=== PATIENT | male | born 1935 | race Caucasian/White ===

== ENCOUNTER 2018-01-06 11:28 | Observation (INO) ==
--- NOTE | 2018-01-06 12:10 | Emergency Department Note ---
Disposition Clinical Impression: Altered mental status, TIA (transient ischemic attack) Disposition: Still a Patient Condition: Good Altered Mental Status HPI - General Chief Complaint: ED Altered Mental Status Stated Complaint: AMS, Difficulty thinking Time Seen by Provider: 01/06/18 11:43 Source: patient Limitations: no limitations - History of Present Illness HPI Narrative: 82 YO M here for AMS. History was taken mostly from his and son. His family states that this morning patient reports that he woke up confused and kept repeating the same questions after hearing the answers. Family and patient deny falling. Patient denies urinary symptoms, cough, SOB, CP, abdominal pain, bowel movement changes, fever, night sweats. Family reports patient has been healthy with no relevant medical history. He is very active, playing tennis last Wednesday. Has essential tremor at baseline according to family. No history of falls or ambulation. - Related Data Home Medications Medication Instructions Recorded Confirmed RX: No Known Home Drugs 01/06/18 01/06/18 Allergies Allergy/AdvReac Type Severity Reaction Status Date / Time No Known Allergies Allergy Verified 01/06/18 11:49 Constitutional: Denies: fever, chills, weakness, weight change, night sweats Cardiovascular: Denies: chest pain, palpitations Respiratory: Denies: cough, dyspnea, wheezes, sputum production Gastrointestinal: Denies: abdominal pain, nausea, vomiting, diarrhea Genitourinary: Denies: urgency, dysuria Neurological: Denies: headache, weakness, numbness, paresthesias, confusion, abnormal gait Past Medical History - Past Medical History Medical history: Reports: no medical history Psychiatric history: Reports: no psych history - Social History Smoking Status: Never smoker Smokeless Tobacco Status: No Alcohol use: Reports: none Drug use: Reports: none Physical Exam - General Limitations: no limitations General appearance: alert, in no apparent distress - Head Head exam: atraumatic, normocephalic - Eye Eye exam: Present: normal appearance, PERRL, EOMI. Absent: scleral icterus, conjunctival injection, nystagmus, miosis - Chest Chest inspection: Present: symmetric chest wall rise - Respiratory Respiratory exam: Present: normal lung sounds bilaterally - Cardiovascular Cardiovascular exam: Present: regular rate, normal rhythm, normal heart sounds - Abdominal Exam Abdominal exam: Present: soft, Non-Tender, normal bowel sounds. Absent: distention, guarding, rebound - Neurological Exam Neurological exam: Present: alert, other (did not remember what he ate last night). Absent: oriented X3 (Short term memory not intact - can't remember 3 objects, not oriented to time) - Expanded Neurological Exam Patient oriented to: Present: person, place Cerebellar function: finger to nose: Abnormal Left, Abnormal Right (Patient had tremor) Motor strength - LUE: 5/5 Motor strength - RUE: 5/5 Motor strength - LLE: 5/5 Motor strength - RLE: 5/5 - Psychiatric Psychiatric exam: Present: normal affect, normal mood Course Course Narrative: 82 YO M here for AMS with no signifcant history. Patient is NIH stroke scale 1. Other than AMS patient doesn't have any physical findings. Considering stroke vs infectious. Ordered head CT, CXR, bloodwork - Reevaluation(s) Reevaluation #1: CT head negative for acute pathology. Spoke with hospitalist and okay to admit patient for workup for TIA. Vital Signs Temperature 97.9 F 01/06/18 11:32 Pulse Rate 72 01/06/18 11:32 Respiratory Rate 15 01/06/18 11:32 Blood Pressure 144/78 01/06/18 11:32 O2 Sat by Pulse Oximetry 97 01/06/18 11:32 Temperature 98.2 F 01/06/18 16:45 Pulse Rate 53 01/06/18 16:45 Respiratory Rate 16 01/06/18 16:45 Blood Pressure 122/72 01/06/18 16:45 O2 Sat by Pulse Oximetry 98 01/06/18 16:45 Oxygen Delivery Oxygen Delivery Room Air Altered Mental Status - Lab Data Result diagrams: 01/06/18 12:08 01/06/18 12:08 Lab Results 01/06/18 01/06/18 01/06/18 Range/Units 12:08 12:08 12:08 WBC 5.3 (4.3-11.1) K/mcL RBC 4.46 (4.19-5.50) M/mcL Hgb 14.0 (12.9-16.9) g/dL Hct 42.0 (37.5-50.1) % MCV 94.2 (83.0-100.0) fL MCH 31.4 (28.0-33.3) pg MCHC 33.3 (31.6-35.5) g/dL RDW 13.1 (11.5-14.5) % Plt Count 223 (140-400) K/mcL MPV 9.7 (9.4-12.4) fL Immature Gran % 0.2 (0-4) % Seg Neutrophils % 66.7 % Lymphocytes % 21.5 % Monocytes % 8.9 % Eosinophils % 2.1 % Basophils % 0.6 % Neutrophils # 3.5 (1.6-8.9) K/mcL Lymphocytes # 1.1 (0.6-4.6) K/mcL Monocytes # 0.5 (0.0-1.3) K/mcL Eosinophils # 0.1 (0.0-0.6) K/mcL Basophils # 0.0 (0.0-0.2) K/mcL Sodium 139 (136-145) mEq/L Potassium 4.5 (3.5-5.1) mEq/L Chloride 108 H (98-107) mEq/L Carbon Dioxide 26 (23-29) mEq/L BUN 26 H (8-23) mg/dL Creatinine 1.29 (0.70-1.30) mg/dL Est GFR ( Amer) > 60 (> 60) Est GFR (Non-Af Amer) 53 L (> 60) BUN/Creatinine Ratio 20 (6-26) Glucose 95 (70-105) mg/dL Calculated Osmolality 293 (280-300) Calcium 9.7 (8.6-10.3) mg/dL Total Bilirubin 0.6 (0.3-1.0) mg/dL Direct Bilirubin 0.1 (0.0-0.2) mg/dL Indirect Bilirubin 0.5 (0.0-1.2) mg/dL AST 24 (13-39) Units/L ALT 21 (7-52) Units/L Alkaline Phosphatase 49 (34-104) Units/L Ammonia 20 (16-53) mcmol/L Troponin I < 0.03 (< 0.04) ng/mL Serum Total Protein 6.8 (6.4-8.9) g/dL Albumin 4.1 (3.5-5.7) g/dL Globulin 2.7 (2.4-3.5) g/dL Albumin/Globulin Ratio 1.5 (1.1-2.2) TSH 2.760 (0.340-5.600) mcIU/mL Urine Color (Yellow) Urine Clarity (Clear) Urine pH (5.0-8.0) pH Units Ur Specific [place] (1.010-1.025) Urine Protein (Neg-Trace) mg/dL Urine Glucose (UA) (Normal) mg/dL Urine Ketones (Negative) mg/dL Urine Blood (Negative) Urine Nitrite (Negative) Urine Bilirubin (Negative) Urine Urobilinogen (Normal) mg/dL Ur Leukocyte Esterase (Negative) Ur Culture Indicated? (NO) Urine Opiates Screen (Dgxumt=462) ng/mL Ur Barbiturates Screen (Fsukrx=682) ng/mL Ur Phencyclidine Scrn (Cutoff=25) ng/mL Ur Amphetamines Screen (Pukfnt=6692) ng/mL U Benzodiazepines Scrn (Yxyisj=297) ng/mL Urine Cocaine Screen (Cutoff= 300) ng/mL U Marijuana (THC) Screen (Cutoff = 50) ng/mL Ur Drug Screen Interp Ethyl Alcohol < 10 (Less than 10) mg/dL 01/06/18 01/06/18 Range/Units 13:06 13:06 WBC (4.3-11.1) K/mcL RBC (4.19-5.50) M/mcL Hgb (12.9-16.9) g/dL Hct (37.5-50.1) % MCV (83.0-100.0) fL MCH (28.0-33.3) pg MCHC (31.6-35.5) g/dL RDW (11.5-14.5) % Plt Count (140-400) K/mcL MPV (9.4-12.4) fL Immature Gran % (0-4) % Seg Neutrophils % % Lymphocytes % % Monocytes % % Eosinophils % % Basophils % % Neutrophils # (1.6-8.9) K/mcL Lymphocytes # (0.6-4.6) K/mcL Monocytes # (0.0-1.3) K/mcL Eosinophils # (0.0-0.6) K/mcL Basophils # (0.0-0.2) K/mcL Sodium (136-145) mEq/L Potassium (3.5-5.1) mEq/L Chloride (98-107) mEq/L Carbon Dioxide (23-29) mEq/L BUN (8-23) mg/dL Creatinine (0.70-1.30) mg/dL Est GFR ( Amer) (> 60) Est GFR (Non-Af Amer) (> 60) BUN/Creatinine Ratio (6-26) Glucose (70-105) mg/dL Calculated Osmolality (280-300) Calcium (8.6-10.3) mg/dL Total Bilirubin (0.3-1.0) mg/dL Direct Bilirubin (0.0-0.2) mg/dL Indirect Bilirubin (0.0-1.2) mg/dL AST (13-39) Units/L ALT (7-52) Units/L Alkaline Phosphatase (34-104) Units/L Ammonia (16-53) mcmol/L Troponin I (< 0.04) ng/mL Serum Total Protein (6.4-8.9) g/dL Albumin (3.5-5.7) g/dL Globulin (2.4-3.5) g/dL Albumin/Globulin Ratio (1.1-2.2) TSH (0.340-5.600) mcIU/mL Urine Color Yellow (Yellow) Urine Clarity Clear (Clear) Urine pH 5.0 (5.0-8.0) pH Units Ur Specific [place] 1.021 (1.010-1.025) Urine Protein Negative (Neg-Trace) mg/dL Urine Glucose (UA) Normal (Normal) mg/dL Urine Ketones Negative (Negative) mg/dL Urine Blood Negative (Negative) Urine Nitrite Negative (Negative) Urine Bilirubin Negative (Negative) Urine Urobilinogen Normal (Normal) mg/dL Ur Leukocyte Esterase Negative (Negative) Ur Culture Indicated? NO (NO) Urine Opiates Screen Negative (Weropy=760) ng/mL Ur Barbiturates Screen Negative (Zkphni=309) ng/mL Ur Phencyclidine Scrn Negative (Cutoff=25) ng/mL Ur Amphetamines Screen Negative (Pbpkhd=0437) ng/mL U Benzodiazepines Scrn Negative (Cleufy=981) ng/mL Urine Cocaine Screen Negative (Cutoff= 300) ng/mL U Marijuana (THC) Screen Negative (Cutoff = 50) ng/mL Ur Drug Screen Interp See Below Ethyl Alcohol (Less than 10) mg/dL TPA Checklist - LKW: 3-4.5 hrs Add. Warnings/Precautions Patient/family understanding: The patient/family members have been counseled and understood the risk, benefit , and alternatives of treatment. Nausea/Vomiting/Diarrhea - Lab Data Result diagrams: 01/06/18 12:08 01/06/18 12:08 Lab Results 01/06/18 01/06/18 01/06/18 Range/Units 12:08 12:08 12:08 WBC 5.3 (4.3-11.1) K/mcL RBC 4.46 (4.19-5.50) M/mcL Hgb 14.0 (12.9-16.9) g/dL Hct 42.0 (37.5-50.1) % MCV 94.2 (83.0-100.0) fL MCH 31.4 (28.0-33.3) pg MCHC 33.3 (31.6-35.5) g/dL RDW 13.1 (11.5-14.5) % Plt Count 223 (140-400) K/mcL MPV 9.7 (9.4-12.4) fL Immature Gran % 0.2 (0-4) % Seg Neutrophils % 66.7 % Lymphocytes % 21.5 % Monocytes % 8.9 % Eosinophils % 2.1 % Basophils % 0.6 % Neutrophils # 3.5 (1.6-8.9) K/mcL Lymphocytes # 1.1 (0.6-4.6) K/mcL Monocytes # 0.5 (0.0-1.3) K/mcL Eosinophils # 0.1 (0.0-0.6) K/mcL Basophils # 0.0 (0.0-0.2) K/mcL Sodium 139 (136-145) mEq/L Potassium 4.5 (3.5-5.1) mEq/L Chloride 108 H (98-107) mEq/L Carbon Dioxide 26 (23-29) mEq/L BUN 26 H (8-23) mg/dL Creatinine 1.29 (0.70-1.30) mg/dL Est GFR ( Amer) > 60 (> 60) Est GFR (Non-Af Amer) 53 L (> 60) BUN/Creatinine Ratio 20 (6-26) Glucose 95 (70-105) mg/dL Calculated Osmolality 293 (280-300) Calcium 9.7 (8.6-10.3) mg/dL Total Bilirubin 0.6 (0.3-1.0) mg/dL Direct Bilirubin 0.1 (0.0-0.2) mg/dL Indirect Bilirubin 0.5 (0.0-1.2) mg/dL AST 24 (13-39) Units/L ALT 21 (7-52) Units/L Alkaline Phosphatase 49 (34-104) Units/L Ammonia 20 (16-53) mcmol/L Troponin I < 0.03 (< 0.04) ng/mL Serum Total Protein 6.8 (6.4-8.9) g/dL Albumin 4.1 (3.5-5.7) g/dL Globulin 2.7 (2.4-3.5) g/dL Albumin/Globulin Ratio 1.5 (1.1-2.2) TSH 2.760 (0.340-5.600) mcIU/mL Urine Color (Yellow) Urine Clarity (Clear) Urine pH (5.0-8.0) pH Units Ur Specific [place] (1.010-1.025) Urine Protein (Neg-Trace) mg/dL Urine Glucose (UA) (Normal) mg/dL Urine Ketones (Negative) mg/dL Urine Blood (Negative) Urine Nitrite (Negative) Urine Bilirubin (Negative) Urine Urobilinogen (Normal) mg/dL Ur Leukocyte Esterase (Negative) Ur Culture Indicated? (NO) Urine Opiates Screen (Wbnwjk=045) ng/mL Ur Barbiturates Screen (Tuuvlq=292) ng/mL Ur Phencyclidine Scrn (Cutoff=25) ng/mL Ur Amphetamines Screen (Qpcaya=1327) ng/mL U Benzodiazepines Scrn (Fltpye=411) ng/mL Urine Cocaine Screen (Cutoff= 300) ng/mL U Marijuana (THC) Screen (Cutoff = 50) ng/mL Ur Drug Screen Interp Ethyl Alcohol < 10 (Less than 10) mg/dL 01/06/18 01/06/18 Range/Units 13:06 13:06 WBC (4.3-11.1) K/mcL RBC (4.19-5.50) M/mcL Hgb (12.9-16.9) g/dL Hct (37.5-50.1) % MCV (83.0-100.0) fL MCH (28.0-33.3) pg MCHC (31.6-35.5) g/dL RDW (11.5-14.5) % Plt Count (140-400) K/mcL MPV (9.4-12.4) fL Immature Gran % (0-4) % Seg Neutrophils % % Lymphocytes % % Monocytes % % Eosinophils % % Basophils % % Neutrophils # (1.6-8.9) K/mcL Lymphocytes # (0.6-4.6) K/mcL Monocytes # (0.0-1.3) K/mcL Eosinophils # (0.0-0.6) K/mcL Basophils # (0.0-0.2) K/mcL Sodium (136-145) mEq/L Potassium (3.5-5.1) mEq/L Chloride (98-107) mEq/L Carbon Dioxide (23-29) mEq/L BUN (8-23) mg/dL Creatinine (0.70-1.30) mg/dL Est GFR ( Amer) (> 60) Est GFR (Non-Af Amer) (> 60) BUN/Creatinine Ratio (6-26) Glucose (70-105) mg/dL Calculated Osmolality (280-300) Calcium (8.6-10.3) mg/dL Total Bilirubin (0.3-1.0) mg/dL Direct Bilirubin (0.0-0.2) mg/dL Indirect Bilirubin (0.0-1.2) mg/dL AST (13-39) Units/L ALT (7-52) Units/L Alkaline Phosphatase (34-104) Units/L Ammonia (16-53) mcmol/L Troponin I (< 0.04) ng/mL Serum Total Protein (6.4-8.9) g/dL Albumin (3.5-5.7) g/dL Globulin (2.4-3.5) g/dL Albumin/Globulin Ratio (1.1-2.2) TSH (0.340-5.600) mcIU/mL Urine Color Yellow (Yellow) Urine Clarity Clear (Clear) Urine pH 5.0 (5.0-8.0) pH Units Ur Specific [place] 1.021 (1.010-1.025) Urine Protein Negative (Neg-Trace) mg/dL Urine Glucose (UA) Normal (Normal) mg/dL Urine Ketones Negative (Negative) mg/dL Urine Blood Negative (Negative) Urine Nitrite Negative (Negative) Urine Bilirubin Negative (Negative) Urine Urobilinogen Normal (Normal) mg/dL Ur Leukocyte Esterase Negative (Negative) Ur Culture Indicated? NO (NO) Urine Opiates Screen Negative (Cmozyd=757) ng/mL Ur Barbiturates Screen Negative (Kxkjcs=246) ng/mL Ur Phencyclidine Scrn Negative (Cutoff=25) ng/mL Ur Amphetamines Screen Negative (Hrmblr=2331) ng/mL U Benzodiazepines Scrn Negative (Nflscj=301) ng/mL Urine Cocaine Screen Negative (Cutoff= 300) ng/mL U Marijuana (THC) Screen Negative (Cutoff = 50) ng/mL Ur Drug Screen Interp See Below Ethyl Alcohol (Less than 10) mg/dL - EKG Data EKG attestation: Yes I reviewed and interpreted this EKG. EKG shows normal: sinus rhythm Rate: normal Rhythm: NSR [place]/QRS: left axis deviation Interpretation: no acute changes, unchanged when compared to prior tracing (date ) NIH Stroke Scale - Level of Consciousness LOC: Alert - LOC Questions LOC Questions: Answers one correctly - LOC Commands LOC Commands: Performs both correctly - Best Gaze Best Gaze: Normal - Visual Visual: No visual loss - Facial Palsy Facial Palsy: Normal - Motor Arms Motor Arm-Left: No drift for 10 seconds Motor Arm-Right: No drift for 10 seconds - Motor Legs Motor Leg-Left: No drift for 5 seconds Motor Leg-Right: No drift for 5 seconds - Limb Ataxia Limb Ataxia: Absent of affected limb too weak to perform exam - Sensory Sensory: Normal - Best Language Best Language: No aphasia - Dysarthria Dysarthria: Normal - Extinction and Inattention Extinction and Inattention: Normal - NIHSS Total Score NIHSS Total Score: 1
--- NOTE | 2018-01-06 12:13 | Emergency Department Note ---
Disposition Clinical Impression: TIA (transient ischemic attack) Altered mental status Qualifiers: Altered mental status type: unspecified Qualified Code(s): R41.82 - Altered mental status, unspecified Disposition: Still a Patient Condition: Good General Adult HPI - General Chief complaint: ED Altered Mental Status Stated complaint: AMS, Difficulty thinking Time Seen by Provider: 01/06/18 11:43 Source: patient Limitations: no limitations - History of Present Illness Pain Scale: 0 - Related Data Home Medications Medication Instructions Recorded Confirmed No Known Home Drugs 01/06/18 01/06/18 Allergies Allergy/AdvReac Type Severity Reaction Status Date / Time No Known Allergies Allergy Verified 01/06/18 11:49 Past Medical History - Past Medical History Medical history: Reports: no medical history Psychiatric history: Reports: no psych history - Social History Smoking Status: Never smoker Smokeless Tobacco Status: No Alcohol use: Reports: none Drug use: Reports: none Physical Exam - General Limitations: no limitations General appearance: alert, in no apparent distress Course Vital Signs Temperature 97.9 F 01/06/18 11:32 Pulse Rate 72 01/06/18 11:32 Respiratory Rate 15 01/06/18 11:32 Blood Pressure 144/78 01/06/18 11:32 O2 Sat by Pulse Oximetry 97 01/06/18 11:32 Temperature 98.2 F 01/06/18 16:45 Pulse Rate 53 01/06/18 16:45 Respiratory Rate 16 01/06/18 16:45 Blood Pressure 122/72 01/06/18 16:45 O2 Sat by Pulse Oximetry 98 01/06/18 16:45 Oxygen Delivery Oxygen Delivery Room Air Medical Decision Making - Lab Data Result diagrams: 01/06/18 12:08 01/06/18 12:08 Lab Results 01/06/18 01/06/18 01/06/18 Range/Units 12:08 12:08 12:08 WBC 5.3 (4.3-11.1) K/mcL RBC 4.46 (4.19-5.50) M/mcL Hgb 14.0 (12.9-16.9) g/dL Hct 42.0 (37.5-50.1) % MCV 94.2 (83.0-100.0) fL MCH 31.4 (28.0-33.3) pg MCHC 33.3 (31.6-35.5) g/dL RDW 13.1 (11.5-14.5) % Plt Count 223 (140-400) K/mcL MPV 9.7 (9.4-12.4) fL Immature Gran % 0.2 (0-4) % Seg Neutrophils % 66.7 % Lymphocytes % 21.5 % Monocytes % 8.9 % Eosinophils % 2.1 % Basophils % 0.6 % Neutrophils # 3.5 (1.6-8.9) K/mcL Lymphocytes # 1.1 (0.6-4.6) K/mcL Monocytes # 0.5 (0.0-1.3) K/mcL Eosinophils # 0.1 (0.0-0.6) K/mcL Basophils # 0.0 (0.0-0.2) K/mcL Sodium 139 (136-145) mEq/L Potassium 4.5 (3.5-5.1) mEq/L Chloride 108 H (98-107) mEq/L Carbon Dioxide 26 (23-29) mEq/L BUN 26 H (8-23) mg/dL Creatinine 1.29 (0.70-1.30) mg/dL Est GFR ( Amer) > 60 (> 60) Est GFR (Non-Af Amer) 53 L (> 60) BUN/Creatinine Ratio 20 (6-26) Glucose 95 (70-105) mg/dL Calculated Osmolality 293 (280-300) Calcium 9.7 (8.6-10.3) mg/dL Total Bilirubin 0.6 (0.3-1.0) mg/dL Direct Bilirubin 0.1 (0.0-0.2) mg/dL Indirect Bilirubin 0.5 (0.0-1.2) mg/dL AST 24 (13-39) Units/L ALT 21 (7-52) Units/L Alkaline Phosphatase 49 (34-104) Units/L Ammonia 20 (16-53) mcmol/L Troponin I < 0.03 (< 0.04) ng/mL Serum Total Protein 6.8 (6.4-8.9) g/dL Albumin 4.1 (3.5-5.7) g/dL Globulin 2.7 (2.4-3.5) g/dL Albumin/Globulin Ratio 1.5 (1.1-2.2) TSH 2.760 (0.340-5.600) mcIU/mL Urine Color (Yellow) Urine Clarity (Clear) Urine pH (5.0-8.0) pH Units Ur Specific [place] (1.010-1.025) Urine Protein (Neg-Trace) mg/dL Urine Glucose (UA) (Normal) mg/dL Urine Ketones (Negative) mg/dL Urine Blood (Negative) Urine Nitrite (Negative) Urine Bilirubin (Negative) Urine Urobilinogen (Normal) mg/dL Ur Leukocyte Esterase (Negative) Ur Culture Indicated? (NO) Urine Opiates Screen (Oienqa=200) ng/mL Ur Barbiturates Screen (Ihvumf=453) ng/mL Ur Phencyclidine Scrn (Cutoff=25) ng/mL Ur Amphetamines Screen (Jiktdt=9121) ng/mL U Benzodiazepines Scrn (Qeuwib=652) ng/mL Urine Cocaine Screen (Cutoff= 300) ng/mL U Marijuana (THC) Screen (Cutoff = 50) ng/mL Ur Drug Screen Interp Ethyl Alcohol < 10 (Less than 10) mg/dL 01/06/18 01/06/18 Range/Units 13:06 13:06 WBC (4.3-11.1) K/mcL RBC (4.19-5.50) M/mcL Hgb (12.9-16.9) g/dL Hct (37.5-50.1) % MCV (83.0-100.0) fL MCH (28.0-33.3) pg MCHC (31.6-35.5) g/dL RDW (11.5-14.5) % Plt Count (140-400) K/mcL MPV (9.4-12.4) fL Immature Gran % (0-4) % Seg Neutrophils % % Lymphocytes % % Monocytes % % Eosinophils % % Basophils % % Neutrophils # (1.6-8.9) K/mcL Lymphocytes # (0.6-4.6) K/mcL Monocytes # (0.0-1.3) K/mcL Eosinophils # (0.0-0.6) K/mcL Basophils # (0.0-0.2) K/mcL Sodium (136-145) mEq/L Potassium (3.5-5.1) mEq/L Chloride (98-107) mEq/L Carbon Dioxide (23-29) mEq/L BUN (8-23) mg/dL Creatinine (0.70-1.30) mg/dL Est GFR ( Amer) (> 60) Est GFR (Non-Af Amer) (> 60) BUN/Creatinine Ratio (6-26) Glucose (70-105) mg/dL Calculated Osmolality (280-300) Calcium (8.6-10.3) mg/dL Total Bilirubin (0.3-1.0) mg/dL Direct Bilirubin (0.0-0.2) mg/dL Indirect Bilirubin (0.0-1.2) mg/dL AST (13-39) Units/L ALT (7-52) Units/L Alkaline Phosphatase (34-104) Units/L Ammonia (16-53) mcmol/L Troponin I (< 0.04) ng/mL Serum Total Protein (6.4-8.9) g/dL Albumin (3.5-5.7) g/dL Globulin (2.4-3.5) g/dL Albumin/Globulin Ratio (1.1-2.2) TSH (0.340-5.600) mcIU/mL Urine Color Yellow (Yellow) Urine Clarity Clear (Clear) Urine pH 5.0 (5.0-8.0) pH Units Ur Specific [place] 1.021 (1.010-1.025) Urine Protein Negative (Neg-Trace) mg/dL Urine Glucose (UA) Normal (Normal) mg/dL Urine Ketones Negative (Negative) mg/dL Urine Blood Negative (Negative) Urine Nitrite Negative (Negative) Urine Bilirubin Negative (Negative) Urine Urobilinogen Normal (Normal) mg/dL Ur Leukocyte Esterase Negative (Negative) Ur Culture Indicated? NO (NO) Urine Opiates Screen Negative (Vfzror=243) ng/mL Ur Barbiturates Screen Negative (Fopoej=561) ng/mL Ur Phencyclidine Scrn Negative (Cutoff=25) ng/mL Ur Amphetamines Screen Negative (Tisfdz=4685) ng/mL U Benzodiazepines Scrn Negative (Kpcpat=907) ng/mL Urine Cocaine Screen Negative (Cutoff= 300) ng/mL U Marijuana (THC) Screen Negative (Cutoff = 50) ng/mL Ur Drug Screen Interp See Below Ethyl Alcohol (Less than 10) mg/dL Attestation Statement - Attestation Attestation: I examined this patient and my medical decision-making was reviewed with the MARINE CONSULTANT/PA/Advanced Practice Nurse/Resident Physician. I agree with the documented findings, disposition and treatment plan as described except to the extent set forth below. I did see the patient is spoke with them and his and son and the patient woke up at 7:00 and his and the patient did not speak much until 8:00 when she realized that he was confused and did not remember of a upcoming hernia surgery or what medications on his bedside were there for. The patient denies any pain in the head, neck, chest, abdomen or back. He denies any localized numbness or weakness of the extremities, slurred speech, facial droop and the patient does not feel confused. Workup in progress including labs, head CT and EKG. Patient still does have some confusion as to the date and will be admitted to the hospital. He is not a thrombolytic candidate due to prolonged duration of symptoms and the fact that he woke up with his confusion. [id number]
[2018-01-06 12:33] LABS: Basophils % 0.6 %; Eosinophils # 0.1 K/mcL (0.0-0.6); Eosinophils % 2.1 %; Immature Granulocytes % 0.2 % (0-4); Lymphocytes # 1.1 K/mcL (0.6-4.6); Lymphocytes % 21.5 %; Mean Corpuscular HGB Conc 33.3 g/dL (31.6-35.5); Mean Corpuscular Hemoglobin 31.4 pg (28.0-33.3); Mean Corpuscular Volume 94.2 fL (83.0-100.0); Mean Platelet Volume 9.7 fL (9.4-12.4); Monocytes # 0.5 K/mcL (0.0-1.3); Monocytes % 8.9 %; Neutrophils # 3.5 K/mcL (1.6-8.9); Platelet Count 223 K/mcL (140-400); Red Blood Count 4.46 M/mcL (4.19-5.50); Red Cell Distribution Width 13.1 % (11.5-14.5); Segmented Neutrophils % 66.7 %
[2018-01-06 12:53] LABS: Alanine Aminotransferase 21 Units/L (7-52); Albumin 4.1 g/dL (3.5-5.7); Albumin/Globulin Ratio 1.5 (1.1-2.2); Alkaline Phosphatase 49 Units/L (34-104); Aspartate Amino Transferase 24 Units/L (13-39); BUN/Creatinine Ratio 20 (6-26); Bilirubin,Direct 0.1 mg/dL (0.0-0.2); Bilirubin,Indirect 0.5 mg/dL (0.0-1.2); Bilirubin,Total 0.6 mg/dL (0.3-1.0); Blood Urea Nitrogen 26 mg/dL (8-23); Calcium 9.7 mg/dL (8.6-10.3); Carbon Dioxide 26 mEq/L (23-29); Chloride 108 mEq/L (98-107); Ethanol < 10 mg/dL (Less than 10); Globulin 2.7 g/dL (2.4-3.5); Glucose 95 mg/dL (70-105); Osmolality,Calculated 293 (280-300); Potassium 4.5 mEq/L (3.5-5.1); Sodium 139 mEq/L (136-145); Total Protein 6.8 g/dL (6.4-8.9); eGFR For Non-African Americans 53 (> 60)
[2018-01-06 12:54] LABS: Troponin I < 0.03 ng/mL (< 0.04)
[2018-01-06 13:19] LABS: Bilirubin,Urine Negative (Negative); Blood,Urine Negative (Negative); Clarity,Urine Clear (Clear); Color,Urine Yellow (Yellow); Glucose,Urine (UA) Normal (Normal); Ketones,Urine Negative (Negative); Leukocyte Esterase,Urine Negative (Negative); Nitrite,Urine Negative (Negative); Protein,Urine Negative (Neg-Trace); Specific Gravity,Urine 1.021 (1.010-1.025); Urobilinogen,Urine Normal (Normal)
[2018-01-06 13:28] LABS: Amphetamine Screen,Urine Negative ng/mL (Cutoff=1000); Barbiturate Screen,Urine Negative ng/mL (Cutoff=200); Benzodiazepines Screen,Urine Negative ng/mL (Cutoff=200); Cannabinoid Screen,Urine Negative ng/mL (Cutoff = 50); Cocaine Screen,Urine Negative ng/mL (Cutoff= 300); Opiate Screen,Urine Negative ng/mL (Cutoff=300); Phencyclidine Screen,Urine Negative ng/mL (Cutoff=25)
--- NOTE | 2018-01-06 16:22 | Internal Med History&Physical ---
<Demetrius Ojeda M - Last Filed: 01/06/18 17:25> Date of Encounter: 01/06/18 Time of Encounter: 15:00 Internal Medicine - H&P: HPI Chief complaint: Confusion, AMS Admitted From: Home Plans for Post Hospital Care: Home History of present illness: Mr. Elizondo is a 82 year old male with no reported past medical history who presents to [facility] for evaluation of Altered Mental Status. Patient's states that this morning she noticed he had a confused look on his face and he could not remember that he had an upcoming hernia surgery scheduled. He did not know the day or month even after being told several times. This has never happened to him before and he himself was concerned because he was aware of his confusion. His did not notice any facial droop, slurred speech, arm or leg weakness, gait disturbance, or any other concerning symptoms but due to his continued short term memory deficits and the "odd look on his face" she contacted PCP who advised to go to ED. He does have a history of mild essential tremor. He denies SOB, CP, fever/chills, Abdominal complaints, Diarrhea, Dysuria , Neuropathy. His only pertinent ROS is a mild essential tremor and some intermittent lightheadedness. The patient states he has never had an Echo or Carotid Ultrasound. His only known risk factor at this time is family history, mother had fatal stroke age 73. 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 In the ED, he can somewhat recall the events of this morning but still has short term memory deficits and cannot state the date and does take a big pause before confirming location as [facility]. His vitals have been stable with some mild hypertension 144/78 and HR 54. On examination, his strength/proprioception/ reflexes are all intact, [id number], pronator drift, finger to nose, and babinski were all normal. There were no focal neurological deficits identified. CN2-12 intact, no facial droop, no slurred speech. No visual disturbances. NIH stroke scale 1. CT Head showed no acute intracranial process, but diffuse atrophic changes consistent with chronic microvascular ischemia. CXR normal. Patient admitted for presumed TIA, started on ASA and Statin and will begin full stroke work-up. Past Med Surg Social Fam HX - Past Medical History Medical history: no medical history Psychiatric history: no psych history - Past Surgical History Additional surgical history: shoulder. bilateral hip replacement - Social History Smoking Status: Never smoker Smokeless Tobacco Status: No Alcohol use: none Drug use: none - Family History Mother Age at : 73 Cause of : stroke Internal Medicine - H&P: Meds Aspirin Enteric Coated [Aspirin EC] 81 mg PO DAILY tablet. 01/07/18 [Rx] 3 Allergy/AdvReac Type Severity Reaction Status Date / Time No Known Allergies Allergy Verified 01/06/18 11:49 All Systems PM: A 10-system review of systems was performed and is negative for pertinent findings except as documented above in the HPI. Review of systems: See below - Constitutional Constitutional: as per HPI, no chills, no fatigue, no fever(s), no lethargy, no night sweats, no weakness, no weight loss - EENT Eyes: as per HPI, no blurry vision, no change in vision, no loss of vision, no other visual disturbances Ears: no tinnitus Nose, mouth and throat: no neck pain - Cardiovascular Cardiovascular ROS IM: lightheadedness, no chest pain, no dyspnea, no orthopnea , no palpitations, no syncope - Respiratory Respiratory: no cough, no dyspnea, no hemoptysis, no dyspnea on exertion, no wheezing - Gastrointestinal Gastrointestinal: no abdominal pain, no coffee ground emesis, no constipation, no diarrhea, no dysphagia - Genitourinary Genitourinary ROS male: no dysuria, no hematuria, no urinary frequency, no urinary hesitancy - Musculoskeletal Musculoskeletal ROS IM: no numbness, no tingling - Neurological Neurological ROS: memory loss, no abnormal gait, no abnormal hearing, no abnormal movements, no abnormal speech, no dizziness, no headache(s), no loss of vision, no numbness, no paresthesias, no radicular pain, no tingling, no weakness - Psychiatric Psychiatric: confusion, memory loss, no depression - Endocrine Endocrine IM: no excessive sweating, no fatigue - Hematologic/Lymphatic Hematologic/Lymphatic: no lymphadenopathy - Constitutional Vitals: Temp Pulse Resp BP Pulse Ox 97.9 F 57 18 139/87 100 01/06/18 11:47 01/06/18 14:09 01/06/18 14:09 01/06/18 14:09 01/06/18 14:09 General appearance: Present: A&O X 1 (Cannot recall the date/month, and did not know [facility] on arrival.) Exam: see below - Head Head exam: Present: atraumatic, normal inspection - Eye Eye exam: Present: EOMI, PERRL. Absent: nystagmus, scleral icterus - ENT ENT exam: Present: mucous membranes moist, normal oropharynx - Neck Neck exam general surgery: Present: normal inspection, trachea midline. Absent : lymphadenopathy, tenderness, thyromegaly - Respiratory Respiratory exam: Present: CTAB. Absent: rales, rhonchi, wheezes - Cardiovascular Cardiovascular exam: Present: bradycardia, RRR, +S1, +S2. Absent: diastolic murmur, gallop, systolic murmur - GI/Abdominal GI/Abdominal exam: Present: hernia, normal bowel sounds. Absent: distended, guarding, rebound, rigid - Extremities Exam Extremities exam: Present: radial pulses palpable and symmetrical. Absent: cyanotic, tenderness - Neurological Exam Neurological exam: Present: alert, altered, CN II-XII intact, normal gait, reflexes normal, no focal deficits, strengths equal and symetr throughout. Absent: abnormal gait, motor sensory deficit, pronater drift, facial droop, speech deficit - Psychiatric Psychiatric exam: Present: normal affect, normal mood - Skin Skin exam: Absent: cyanosis, diaphoretic, rash Internal Med - H&P Results - Labs CBC & Chem 7: 01/06/18 12:08 01/06/18 12:08 - EKG Data EKG shows normal: sinus rhythm Rate: bradycardia - EKG Data Prior EKG available for review: yes When compared to previous EKG: there is no significant change - Assessment and plan (1) TIA (transient ischemic attack) Status: Acute Assessment and plan: Patient with signs/symptoms concerning for TIA -Acute onset confusion and AMS per -Patient has no history of dementia/confusion/AMS -Patient is currently A&Ox2 however he does pause and search for the answer when asked location -No focal neuro deficits appreciated, back to baseline according to ; Denies Facial droop, slurred speech, numbness/weakness anywhere -Family History only known risk factor, NIH stroke scale 1 -EKG shows NSR, no change from prior study, +left axis deviation, no A/V block -CXR normal; CT head no acute process, Diffuse Atrophic changes consistent with chronic microvasular ischemia -UA negative for UTI; UDS normal -TSH, Glucose, Ammonia, Na all WNL PLAN: -MRI Head, MRA Head and neck -Carotid Ultrasound and Echo -Vit B12 levels, Hgb A1c, Lipid panel -Rpt CBC, CMP -Serial NIH stroke scale measurements Code(s): G45.9 - Transient cerebral ischemic attack, unspecified SNOMED Code(s ): 838680640 (2) Altered mental status Status: Acute Assessment and plan: -Patient presenting with CC of AMS/Confusion for several hours this morning -Per Family, Patient is back at his baseline -Short-term memory deficits still present, A&Ox2 -CXR negative for acute process -UA was negative for UTI -UDS negative -Na, Ammonia, TSH all normal; BMP wnl -CT Head showed diffuse atrophy, likely chronic microvascular ischemia, no evidence of mass/ICH -Etiology likely 2/2 to TIA PLAN: -Check B12 levels, repeat CMP -MRI Head, MRA head/neck, Carotid U/S - Qualifiers: Altered mental status type: transient alteration of awareness Qualified Code(s): R40.4 - Transient alteration of awareness Code(s): R41.82 - Altered mental status, unspecified SNOMED Code(s): 771249866 (3) DVT prophylaxis Status: Acute Assessment and plan: Heparin 5000 units SQ Encourage Ambulation - Time Spent With Patient Total time spent is greater than 50% in coordination of care (as documented) at patient's floor/unit and/or counseling patient: <Ruslan Lin - Last Filed: 01/07/18 18:54> Date of Encounter: 01/07/18 Internal Medicine - H&P: HPI History of present illness: Mr. Elizondo is a 82 year old male All Systems PM: A 10-system review of systems was performed and is negative for pertinent findings except as documented above in the HPI. - Constitutional Vitals: Temp Pulse Resp BP Pulse Ox 97.5 F L 55 16 119/74 97 01/07/18 08:21 01/07/18 08:21 01/07/18 08:21 01/07/18 08:21 01/07/18 08:21 Internal Med - H&P Results - Labs CBC & Chem 7: 01/07/18 04:51 01/07/18 04:51 Labs: Short CBC 01/07/18 Range/Units 04:51 WBC 5.5 (4.3-11.1) K/mcL Hgb 13.5 (12.9-16.9) g/dL Hct 39.9 (37.5-50.1) % Plt Count 195 (140-400) K/mcL BMP 01/07/18 04:51 Sodium 140 Potassium 3.9 Chloride 109 H Carbon Dioxide 25 BUN 24 H Creatinine 1.22 Glucose 93 Calcium 8.9 Cardiac Enzymes 01/07/18 Range/Units 04:51 Troponin I < 0.03 (< 0.04) ng/mL Liver Function 01/07/18 Range/Units 04:51 Total Bilirubin 0.7 (0.3-1.0) mg/dL AST 20 (13-39) Units/L ALT 20 (7-52) Units/L Alkaline Phosphatase 42 (34-104) Units/L Albumin 3.6 (3.5-5.7) g/dL - Impressions ITS Impressions Brain MRI 01/06/18 17:18 IMPRESSION: No acute intracranial abnormality. Patent head and neck arteries. D/ / Costa Maher MD / Costa Maher MD Interpreting Provider: Costa Maher MD Neck MRA 01/06/18 17:18 IMPRESSION: No acute intracranial abnormality. Patent head and neck arteries. D/ / Costa Maher MD / Costa Maher MD Interpreting Provider: Costa Maher MD Echocardiogram 01/06/18 17:24 Impressions: LVEF 55%. Normal LV chamber size, wall thickness and function. Mild left ventricular diastolic dysfunction. Normal right ventricular structure and function. No evidence of pulmonary hypertension. No evidence of a PFO with agitated saline contrast. No significant valvular dysfunction. Left Ventricular Wall Motion: Rest Echo Findings All wall segments showed normal motion. Findings: Study Quality * Technically adequate exam. ECG Findings * Sinus bradycardia. Left Ventricle * LVEF 55%. * Normal LV chamber size, wall thickness and function. * Mild left ventricular diastolic dysfunction. Right Ventricle * Normal right ventricular structure and function. Left Atrium * Mildly dilated left atrium. Right Atrium * Mildly dilated right atrium. Aortic Valve * Trileaflet aortic valve. * Mildly sclerotic aortic valve leaflets. * Trace aortic regurgitation. * No aortic stenosis. Mitral Valve * Normal mitral valve structure and function. * No mitral regurgitation. * No mitral stenosis. Tricuspid Valve * Normal tricuspid valve structure and function. * Trace tricuspid regurgitation. * No evidence of pulmonary hypertension. Pulmonic Valve * Normal pulmonic valve structure and function. * Trace pulmonic regurgitation. Aorta * Normally sized aortic root. Pericardium * The pericardium appears normal. IVC * Normal IVC dimensions and inspiratory collapse. Pulmonary Artery * Normal visualized portions of the main pulmonary artery. Interatrial Septum * No evidence of a PFO with agitated saline contrast. Head MRA 01/06/18 17:26 IMPRESSION: No acute intracranial abnormality. Patent head and neck arteries. D/ / Costa Maher MD / Costa Maher MD Interpreting Provider: Costa Maher MD - Time Spent With Patient Total time spent is greater than 50% in coordination of care (as documented) at patient's floor/unit and/or counseling patient: - Attending Attestation Please see event note of today.
[2018-01-06] MEDS ORDERED: traMADol 50 MG TABLET PO PRN (17:11)
[2018-01-06] MEDS ORDERED: Acetaminophen 325 MG TABLET PO PRN (17:11)
[2018-01-06] MEDS ORDERED: Naloxone 0.4 MG/ML INJ IVP PRN (17:11)
[2018-01-06] MEDS ORDERED: *HR* LORazepam 2 MG/ML VIAL IVP ONE (17:27)
[2018-01-06] MEDS ORDERED: Aspirin Enteric Coated 325 MG Tablet PO ONE (17:30)
[2018-01-06] MEDS ORDERED: Aspirin Enteric Coated 81 MG Tablet PO SCH (17:30)
[2018-01-06] MEDS: *HR* Heparin 5,000 UNIT/ML VIAL SQ SCH (18:29)
--- NOTE | 2018-01-06 18:36 | Event Note ---
Date of Encounter: 01/06/18 Time of Encounter: 17:30 The history, physical exam, and medical decision making was performed by the medical student either while I was physically present and actively involved or I personally re-performed the exam and medical decision making. I have verified the accuracy of the medical student's documentation with regards to the history, physical exam findings, and medical decision making on 01/06/18. Mr Elizondo is an 82y/o male with no significant medical history presented to ED with confusion and difficulty performing tasks. This spontaneously resolved after a few hours and he is now baseline. No prior episode. No CP or SOB. Has hx of mild tremor to R hand. Currently he feels at baseline. He is alert and oriented Exam Alert and oriented x 3. Mucus membranes moist. No facial droop. Heart reg with no murmur Lungs clear Abd soft and nontender No edema Strength equal bilaterally. Sensation equal No cerebellar findings. I/P 1. TIA - R/O CVA MRI, MRA, carotid, echo, PT/OT evals ASA and statin Lipid panel Anticipate d/c tomorrow.
[2018-01-07] MEDS: *HR* Heparin 5,000 UNIT/ML VIAL SQ SCH (05:18)
[2018-01-07 05:47] LABS: Hematocrit 39.9 % (37.5-50.1); Hemoglobin 13.5 g/dL (12.9-16.9); INR 1.1; Mean Corpuscular HGB Conc 33.8 g/dL (31.6-35.5); Mean Corpuscular Hemoglobin 32.4 pg (28.0-33.3); Mean Corpuscular Volume 95.7 fL (83.0-100.0); Platelet Count 195 K/mcL (140-400); Prothrombin Time 12.3 Seconds (9.4-12.1); Red Blood Count 4.17 M/mcL (4.19-5.50)
[2018-01-07 06:00] LABS: Alanine Aminotransferase 20 Units/L (7-52); Albumin 3.6 g/dL (3.5-5.7); Albumin/Globulin Ratio 1.5 (1.1-2.2); Alkaline Phosphatase 42 Units/L (34-104); Aspartate Amino Transferase 20 Units/L (13-39); BUN/Creatinine Ratio 20 (6-26); Bilirubin,Total 0.7 mg/dL (0.3-1.0); Blood Urea Nitrogen 24 mg/dL (8-23); Calcium 8.9 mg/dL (8.6-10.3); Carbon Dioxide 25 mEq/L (23-29); Chloride 109 mEq/L (98-107); Chol/HDL Ratio 3.3 (0-4.9); Cholesterol 166 mg/dL (< 200); Globulin 2.4 g/dL (2.4-3.5); Glucose 93 mg/dL (70-105); HDL Cholesterol 50 mg/dL (40-59); LDL Cholesterol,Calculated 101 mg/dL (0-99); Osmolality,Calculated 294 (280-300); Potassium 3.9 mEq/L (3.5-5.1); Sodium 140 mEq/L (136-145); Triglycerides 75 mg/dL (< 150); eGFR For Non-African Americans 57 (> 60)
[2018-01-07 06:01] LABS: Troponin I < 0.03 ng/mL (< 0.04)
[2018-01-07 06:11] LABS: Chol/HDL Ratio 3.3 (0-4.9); Cholesterol 164 mg/dL (< 200); HDL Cholesterol 50 mg/dL (40-59); LDL Cholesterol,Calculated 99 mg/dL (0-99); Triglycerides 74 mg/dL (< 150)
[2018-01-07 07:25] LABS: Estimated Average Glucose 114 mg/dl; Hemoglobin A1C 5.6 %
[2018-01-07 08:30] VITALS: BP 119/74
[2018-01-07] MEDS ORDERED: Aspirin Enteric Coated 81 MG Tablet PO SCH (09:00)
--- NOTE | 2018-01-07 10:51 | Discharge Summary ---
<Demetrius Ojeda M - Last Filed: 01/07/18 10:49> - NOTES TO OUTPATIENT PROVIDER Notes to Outpatient Provider: Patient presenting with acute confusion. Suspected TIA. CVA workup negative. Continue ASA. Lipid panels normal, no indication for Statin. Date of Encounter: 01/07/18 Time of Encounter: 09:00 - Discharge Diagnosis (1) TIA (transient ischemic attack) Status: Acute Assessment and Plan: Patient with signs/symptoms concerning for TIA -Acute onset confusion and AMS per -Patient has no history of dementia/confusion/AMS -Patient is currently A&Ox2 however he does pause and search for the answer when asked location -No focal neuro deficits appreciated, back to baseline according to ; Denies Facial droop, slurred speech, numbness/weakness anywhere -Family History only known risk factor, NIH stroke scale 1 -EKG shows NSR, no change from prior study, +left axis deviation, no A/V block -CXR normal; CT head no acute process, Diffuse Atrophic changes consistent with chronic microvasular ischemia -UA negative for UTI; UDS normal -TSH, Glucose, Ammonia, Na all WNL -MRI Head, MRA Head and neck all normal -Vit B12 levels, Hgb A1c, Lipid panel all normal Code(s): G45.9 - Transient cerebral ischemic attack, unspecified SNOMED Code(s ): 897070178 (2) Altered mental status Status: Acute Qualifiers: Altered mental status type: transient alteration of awareness Qualified Code(s): R40.4 - Transient alteration of awareness Code(s): R41.82 - Altered mental status, unspecified SNOMED Code(s): 366785227 (3) DVT prophylaxis Status: Acute Hospital course: Mr. Elizondo is a 82 year old male with no significant past medical history who presented with complaints of acute confusion starting on the morning of . states he could not recall why he was having surgery, or even that he had a hernia present. He also could not recall the date/month even after being told several times. He was aware of his confusion and it was concerning to him as well as so he sought medical attention. They reported no facial droop, slurred speech, numbness, weakness, gait disturbances, confabulation, or any other concerning symptoms. Upon examination in the ED he appeared to be back at baseline and family stated he was back to his normal self. No focal neurological deficits were appreciated. Strength and sensation were intact. Physical exam was overall unremarkable. Patient was given ASA 325 and a Statin for presumed CVA/TIA. Patient had a CT head which was negative for an acute abnormality, but did show signs of diffuse atrophic changes consistent with chronic microvascular ischemia. An MRI head also confirmed these findings and did not show any evidence of acute ischemia. MRA head/neck, Carotid Ultrasound and CXR were all completely normal. An echocardiogram was performed and revealed an EF 55% and only mild LV diastolic dysfunction. Lipid panels, A1c, B12 and remainder of CBC and CMP were also WNL. The patient did not have any return of his symptoms and after a full CVA workup came back negative it was determined he could be discharged with instructions to follow up with his PCP and continue taking baby ASA. Physical exam prior to discharge was completely normal. Vitals were stable throughout hospital admission with exception of some mild hypertension, highest reading 144/78. - Time Spent with Patient Total time spent providing and/or coordinating discharge services: - Discharge Medications Home Medications: Aspirin Enteric Coated [Aspirin EC] 81 mg PO DAILY tablet. 01/07/18 [Rx] Allergies/Adverse Reactions: 3 Allergy/AdvReac Type Severity Reaction Status Date / Time No Known Allergies Allergy Verified 01/06/18 11:49 Date of admission: 01/06/18 15:28 Primary care physician: Mike Esqueda MD Consults: 01/06/18 17:23 Consult to Physical Therapy [CONS] Routine Comment: Evaluate, develop and implement POC Reason for Consult: possible cva Does patient have active BEDREST order?: No Is patient medically & hemodynamically stable?: Yes Patient assessed for mobility or mobilized this visit?: Yes - Constitutional Vitals: Temp Pulse Resp BP Pulse Ox 97.5 F L 55 16 119/74 97 01/07/18 08:21 01/07/18 08:21 01/07/18 08:21 01/07/18 08:21 01/07/18 08:21 General appearance: Present: A&O X 1 (Cannot recall the date/month, and did not know [facility] on arrival.) - Patient Status Disposition: Home, Self-Care Condition: Good - Discharge Instructions Instructions: Altered Mental Status (GEN) Follow Up With: Mike Esqueda MD [Primary Care Provider] - 01/14/18 10:15 am <Ruslan Lin - Last Filed: 01/07/18 19:00> Date of Encounter: 01/07/18 - Discharge Diagnosis (1) TIA involving carotid artery Priority: Primary Status: Acute Assessment and Plan: Start ASA. Follow up with PCP Hospital course: Mr. Elizondo is a 82 year old male - Time Spent with Patient Total time spent providing and/or coordinating discharge services: Date of admission: 01/06/18 15:28 Primary care physician: Mike Esqueda MD Consults: 01/06/18 17:23 Consult to Physical Therapy [CONS] Routine Comment: Evaluate, develop and implement POC Reason for Consult: possible cva Does patient have active BEDREST order?: No Is patient medically & hemodynamically stable?: Yes Patient assessed for mobility or mobilized this visit?: Yes Discharging clinician: Ruslan Lin Anticipated date of discharge: 01/07/18 - Constitutional Vitals: Temp Pulse Resp BP Pulse Ox 97.5 F L 55 16 119/74 97 01/07/18 08:21 01/07/18 08:21 01/07/18 08:21 01/07/18 08:21 01/07/18 08:21 Exam: See below - Head Head exam: Present: normocephalic - Eye Eye exam: Present: EOMI, conjuntiva pink - ENT ENT exam: Present: mucous membranes moist - Respiratory Respiratory exam: Present: CTAB. Absent: rales, rhonchi, wheezes - Cardiovascular Cardiovascular exam: Present: RRR. Absent: tachycardia - GI/Abdominal GI/Abdominal exam: Present: soft. Absent: tenderness - Extremities Exam Extremities exam: Present: warm. Absent: tenderness - Neurological Exam Neurological exam: Present: alert, oriented X3, no focal deficits - Skin Skin exam: Present: dry, warm - Patient Status Functional capacity at discharge: independent ambulation Overall status at discharge: patient is back to baseline - Diet and Activity Activity: increase activity as tolerated Diet: advance to your usual diet - Attending Attestation The history, physical exam, and medical decision making was performed by the medical student either while I was physically present and actively involved or I personally re-performed the exam and medical decision making. I have verified the accuracy of the medical student's documentation with regards to the history, physical exam findings, and medical decision making on 01/07/18. Mr Elizondo has been in observation for TIA. His work up has been negative. He is afebrile and ready for discharge home. Exam alert. Comfortable Mucus membranes dry Heart reg No wheeze abd soft No focal neuro deficit Plan D/C home today ASA
--- NOTE | 2018-01-08 08:28 | Electrocardiograph Report ---
[place] [id number] Test Date: 2018-01-06 Pat Name: Deacon Elizondo Department: [id number] Room: 3B33 Gender: M [employer]: : 1935 Requested By: Christian Olivas Order Number: [id number] Reading MD: Wilfredo Deluna Measurements Intervals [place] Rate: 55 P: 0 SC: 177 QRS: -58 QRSD: 105 T: 35 QT: 405 QTc: 388 Interpretive Statements Sinus rhythm Left anterior fascicular block Electronically Signed On 01-08-2018 8:27:17 EDT by Wilfredo Deluna
== END 2018-01-07 11:19 | disposition home or self-care (01) ==
LOC: 3BNU 11:28 → EMEROOARM 11:28 → SUATTDRO 15:28 → 3BNU 16:24
PROVIDERS: ADMIT Student in an Organized Health Care Education/Training Program; ATTEND Internal Medicine